=== PATIENT | female | born 1950 | race Caucasian/White ===

== ENCOUNTER 2022-04-06 09:58 | Inpatient (IN) | payer MEDICARE, MEDICAID, SELFPAY ==
--- NOTE | ~2022-04-06 | CT_ITS ---
EXAMINATION: CT HEAD WITHOUT CONTRAST CLINICAL INFORMATION: Apparent no area, delusions COMPARISON: None TECHNIQUE: Contiguous axial imaging was performed from the skull base to vertex without intravenous administration of contrast. This CT examination was performed using dose optimization techniques as appropriate, variously including the following: *Automated exposure control *Adjustment of mA and/or kV according to patient size (this includes techniques or standardized protocols for targeted exams where dose is matched to indication/reason for exam; i.e. extremities or head) *Use of iterative reconstruction technique DLP: 618.4 mGy-cm FINDINGS: No evidence for hemorrhage or mass effect. Martinez/white matter differentiation is maintained. There is no evidence for territorial infarct. Mild atrophy seen. Cisterns unremarkable. The ventricular system demonstrates no intraluminal blood. No evidence for extra-axial collection. Mastoids unremarkable. Prominent cerumen in the external auditory canals. Calvarium intact. CT/CT head/brain wo IV con IMPRESSION: Mild atrophy without any evidence for acute process.
[2022-04-06 10:05] VITALS: BP 120/71; BP 129/66; PULSE 103; PULSE 82; RESP 18; TEMP 36.7; O2SAT 100; O2SAT 98; BMI 32.9
[2022-04-06 10:19] VITALS: RESP 18
--- NOTE | 2022-04-06 10:27 | ECG_ITS ---
Test Reason : check qtc Blood Pressure : / mmHG Vent. Rate : 071 BPM Atrial Rate : 288 BPM P-R Int : 000 ms QRS Dur : 076 ms QT Int : 426 ms P-R-T Axes : 041 033 027 degrees QTc Int : 462 ms Artifact in tracing Normal sinus rhythm with a demand pacemaker Premature atrial complexes Nonspecific ST abnormality Abnormal ECG No previous ECGs available Referred By: Juliann Ball Electronically Signed By:NADYA DOMINGO
--- NOTE | 2022-04-06 10:33 | PC.NURSE ---
contact made with [facility] pharmacy, pt is suspicious regarding medication and medical hx. Last Rx was filled Feb 21.
[2022-04-06 10:50] LABS: MANUAL DIFF FLAG NO
[2022-04-06 10:52] LABS: Basophils Percent Auto 0.5 % (0-2); Eosinophils Absolute Auto 0.2 X10*3/uL (0.0-0.4); Eosinophils Percent Auto 2.6 % (0-4); Hematocrit 42.9 % (37.0-47.0); Hemoglobin 14.9 g/dl (12.0-16.0); Imm Gran Abs Auto 0.03 X10*3/uL (0.00-0.03); Imm Gran Pct Auto 0.3 % (0.0-0.4); Lymphocytes Absolute Auto 1.7 X10*3/uL (1.2-4.9); Lymphocytes Percent Auto 19.9 % (20-40); Mean Corpuscular HGB Conc 34.7 g/dl (31.0-35.0); Mean Corpuscular Hemoglobin 30.5 pg (27.0-33.0); Mean Corpuscular Volume 87.9 fL (80.0-98.0); Mean Platelet Volume 9.6 fL (9.4-12.3); Monocytes Absolute Auto 0.6 X10*3/uL (0.1-1.2); Monocytes Percent Auto 7.2 % (2-11); Neutrophils Percent Auto 69.5 % (45-73); Platelet Count 291 X10*3/uL (160-400); Red Blood Count 4.88 X10*6/uL (4.20-5.50); Red Cell Distribution Width 12.6 % (11.0-16.0); White Blood Count 8.6 X10*3/uL (4.8-10.8)
--- NOTE | 2022-04-06 10:53 | PHA.MEDREC ---
Pharmacy Consult ? Medication Reconciliation Pharmacy has reviewed the medication reconciliation completed by Halie. There are no remarkable issues for provider's attention. It has been about one month since patient has taken medications per [facility]. Dipti Vaughn, NicolleD
--- NOTE | 2022-04-06 11:07 | MHC.CARE ---
Pt was seen by N Rudolph in the community and is a bedsearch
--- NOTE | 2022-04-06 11:14 | PC.NURSE ---
Per [facility]: pt to be moved to Main ER for cardiac montiorting s/p EKG showing Aflutter.
[2022-04-06 11:15] LABS: Influenza A PCR NEGATIVE (Negative); Influenza B PCR NEGATIVE (Negative); Resp Syncy Virus RNA Qual PCR NEGATIVE (Negative); SARS COV2 PCR INHOUSE NEGATIVE (Negative)
--- NOTE | 2022-04-06 11:18 | ED.PSYCH ---
HPI - Psych General Chief Complaint: Psychiatric Symptoms <Juliann BallDAILY - Last Filed: 04/06/22 18:44> Stated Complaint: sec 12 non med compliant per EMS <Juliann Ball DAILY - Last Filed: 04/06/22 18:44> Time Seen by Provider: 04/06/22 10:15 <Juliann BallDAILY - Last Filed: 04/06/22 18:44> Source: patient and EMS <Juliann BallDAILY - Last Filed: 04/06/22 18:44> Mode of arrival: EMS <Juliann BallDAILY - Last Filed: 04/06/22 18:44> Limitations: no limitations <Juliann Ball DAILY - Last Filed: 04/06/22 18:44> History of Present Illness HPI Narrative: Patient is a 71-year-old female who presents to emergency department via EMS on a Section 12 from the [facility]. She is coming from home today, was placed on section 12 by N and clinician and made her an inpatient bed search from [facility]. She reportedly has not been taking her medications over the past week, however she reports to me that she stopped taking them 2 weeks ago because she does not like the way they make her feel. She reports that she had to come here today because she would not let anyone enter her home. She is having paranoia, reportedly having hallucinations of a boyfriend was ?imaginary? according to clinician note, and hallucinations of her being on vacation. When asked, she denies recent ill symptoms, fevers, chills, headache, dizziness, lightheadedness, neck pain, chest pain, palpitations, shortness of breath, difficulty breathing, nausea, vomiting, abdominal pain, numbness or tingling in her extremities. <Juliann BallDAILY - Last Filed: 04/06/22 18:44> Related Data Home Medications: Home Medications Medication Instructions Recorded Confirmed albuterol sulfate 90 mcg/actuation 2 puff inhalation Q6H PRN Wheezing 04/06/22 04/06/22 aerosol inhaler (Ventolin HFA) bupropion HCl 300 mg 24 hr tablet, 1 tab PO DAILY 04/06/22 04/06/22 extended release fluticasone propionate 220 2 puff inhalation BID 04/06/22 04/06/22 mcg/actuation HFA aerosol inhaler haloperidol 10 mg tablet 1 tab PO BEDTIME 04/06/22 04/06/22 hydrochlorothiazide 25 mg tablet 1 tab PO BID 04/06/22 04/06/22 loratadine 10 mg tablet 1 tab PO DAILY 04/06/22 04/06/22 montelukast 10 mg tablet 1 tab PO BEDTIME 04/06/22 04/06/22 paroxetine HCl 30 mg tablet 1 tab PO DAILY 04/06/22 04/06/22 ziprasidone HCl 80 mg capsule 80 mg PO DIRECTED 04/06/22 04/06/22 <Juliann Ball CNP - Last Filed: 04/06/22 18:44> Allergies/Adverse Reactions: Allergies Allergy/AdvReac Type Severity Reaction Status Date / Time Penicillins [PCN] Allergy Rash Verified 04/06/22 10:23 Sulfa (Sulfonamide Allergy Swelling Verified 04/06/22 10:23 Antibiotics) <Juliann Ball CNP - Last Filed: 04/06/22 18:44> Review of Systems Review of Systems: Constitutional : No Fever, No Chills ENT/Mouth : No Ear Pain, No Nasal Congestion, No sore throat Eyes: No Eye Pain, No Swelling, No Redness Cardiovascular : No Chest Pain, No SOB Respiratory : No Cough, No Sputum, No Dyspnea Gastrointestinal : No Nausea, No Vomiting, No Diarrhea, No Hematochezia, No Melena Genitourinary : No Dysuria, No Urinary Frequency, No Hematuria Musculoskeletal : No Myalgias Skin : No Skin Lesions, No rash Neuro : No Weakness, No Numbness, No Paresthesias, No Dizziness, No Headache Psych : positive Anxiety, positive Depression, no SI/HI, positive hallucinations Heme/Lymph: No Lymphadenopathy Endocrine : No Polyuria, No Polydipsia <Juliann Ball CNP - Last Filed: 04/06/22 18:44> Yes all other systems are reviewed and are negative <Juliann Ball CNP - Last Filed: 04/06/22 18:44> PMFSH Past Medical History Attestation statement: The following information was validated with the patient. <Juliann Ball CNP - Last Filed: 04/06/22 18:44> Source: old records reviewed <Juliann Ivetteclement Ball CNP - Last Filed: 04/06/22 18:44> Social History Social History: Social History Alcohol intake: unknown Smoked in Last 30 Days: No Use of substances other than those prescribed or required for medical reasons: Unknown Advance Directives: No Advance Directives Information Provided: No <Juliann Ball CNP - Last Filed: 04/06/22 18:44> Physical Exam Vital Signs: Vital Signs: Last Vital Signs Temp 97.8 F 04/06/22 23:27 Pulse 62 04/06/22 23:27 Resp 16 04/06/22 23:27 BP 125/62 04/06/22 23:27 Pulse Ox 98 04/06/22 23:27 O2 Del Method 04/06/22 23:27 BMI result Body Mass Index 32.9 <Juliann Ball CNP - Last Filed: 04/06/22 18:44> Vital Signs: Last Vital Signs Temp 97.8 F 04/06/22 23:27 Pulse 62 04/06/22 23:27 Resp 16 04/06/22 23:27 BP 125/62 04/06/22 23:27 Pulse Ox 98 04/06/22 23:27 O2 Del Method 04/06/22 23:27 BMI result Body Mass Index 32.9 <Kevin EspañaDO rommel - Last Filed: 04/07/22 07:46> Appearance: Alert.?Oriented to person, place and time. No acute distress.?Normal affect. Eyes: Pupils equal, round and reactive to light.? ENT: Pharynx normal.?? Neck: Normal inspection.? Neck supple.?? CVS: Heart sounds normal. Normal heart rate and irregular rhythm.? Pulses normal.?? Respiratory: No respiratory distress.? Lung sounds clear to auscultation bilaterally?? Abdomen: Soft and non-tender. Normoactive bowel sounds. Skin: Skin warm and dry.? Normal skin color.? Extremities: No lower extremity edema.? Neuro: Moves all extremities spontaneously. Sensation intact bilaterally. CN II-XII intact. No focal neuro deficits. Ambulates with normal steady gait. <Juliann Templetonome, INJECTION PRESS OPERATOR - Last Filed: 04/06/22 18:44> Course Reevaluation(s) Reevaluation #1: EKG reveals atrial fibrillation, it is unclear whether this is new for patient. Does not appear as though she is on any rate control type medications. I talked to contact patient's sister; Jania, who was unable to provide specific medical history aside from schizophrenia fibromyalgia. Jania does endorse that she has been seeming a bit more ?off? recently. She also endorses that patient has been stating that she has a boyfriend but neither herself nor patient's mother have actually met this person. I spoke with our care team clinicians who are going to contact [facility] (who have already evaluated patient in the community) to determine which visiting nurse service patient is in the [place] with we may obtain a more in depth past medical history. In addition, I spoke with the charge nurse and patient will be moved to the main emergency department so that she can be placed on vehicle monitor technician. <Juliann Ball CNP - Last Filed: 04/06/22 18:44> Time: 11:15 <Juliann Ball CNP - Last Filed: 04/06/22 18:44> Reevaluation #2: Records obtained from patient's visiting nurse services, reported past medical history of schizoaffective disorder and psychosis, reviewed medication list it appears as though she is on hydrochlorothiazide due to swelling in the legs, does not appear to be on any additional medications that might suggests history of hypertension or atrial fibrillation. CHADS2-VASc score of 2. Consult did with Cardiology, Dr. Shook, disagrees with interpretation of initial EKG, he does not feel that this was atrial fibrillation. States no indication for anticoagulants use at this time. <Juliann Ivetteclement Ball CNP - Last Filed: 04/06/22 18:44> Time: 13:12 <Juliann Ball CNP - Last Filed: 04/06/22 18:44> Reevaluation #3: CT of the head reveals mild atrophy without any acute intracranial process. CBC is overall unremarkable. CMP is overall unremarkable. At this time, she is medically cleared, she is an inpatient psychiatric bed search. Placed in physician observation she will require further time for placement. <Juliann BallDAILY - Last Filed: 04/06/22 18:44> Time: 16:20 <Juliann BallDAILY - Last Filed: 04/06/22 18:44> Medical Decision Making Medical Decision Making [facility] Narrative: Patient is a 71-year-old female, has not previously been to this Medical Center, past medical history is unclear. Nursing staff was able to contact patient's pharmacy and obtain active medication list including albuterol, bupropion, haloperidol, HCTZ, loratadine, Singulair, paroxetine, ziprasidone. Upon speaking with patient she is alert and oriented x3, she does not appear to be responding to internal stimuli, she is calm and cooperative. She is expressing paranoia surrounding ?people trying to come into her home to harm her?. Review of records in addition dissection received from [facility]; apparently within the 20 years she has been but involved with [facility] she has never had similar episodes to this in the past which she refuses to take her medications and refuses services in the home. She denies any suicidal ideations or homicidal ideations. She denies any drug or alcohol usage. Will obtain basic labs, EKG, in addition to CT of the head to exclude intracranial pathology as reason for increased paranoia and delusions. She has no focal neurological deficits upon examination. <Juliann TempletonDAILY rao - Last Filed: 04/06/22 18:44> Consult Healthcare Provider Management of the patient was discussed with: [facility] (Dr. Shook; cardiology, states initial EKG was not atrial fibrillation, no indication for anticoagulants use at this time.) <Juliann Steele DAILY Ball - Last Filed: 04/06/22 18:44> Lab Data [facility] Lab Attestation statement: I reviewed the patient's lab results. <Juliann Stilesclement Ball CNP - Last Filed: 04/06/22 18:44> Result Diagrams: : 04/06/22 10:46 04/06/22 10:46 <Juliannmatt Ball CNP - Last Filed: 04/06/22 18:44> Labs: Lab Results 04/06/22 04/06/22 04/06/22 Range/Units 10:27 10:46 10:46 WBC 8.6 (4.8-10.8) X10*3/uL RBC 4.88 (4.20-5.50) X10*6/uL Hgb 14.9 (12.0-16.0) g/dl Hct 42.9 (37.0-47.0) % MCV 87.9 (80.0-98.0) fL MCH 30.5 (27.0-33.0) pg MCHC 34.7 (31.0-35.0) g/dl RDW 12.6 (11.0-16.0) % Plt Count 291 (160-400) X10*3/uL MPV 9.6 (9.4-12.3) fL Immature Gran % (Auto) 0.3 (0.0-0.4) % Neut % (Auto) 69.5 (45-73) % Lymph % (Auto) 19.9 L (20-40) % Dickinson % (Auto) 7.2 (2-11) % Eos % (Auto) 2.6 (0-4) % Baso % (Auto) 0.5 (0-2) % Lymph # (Auto) 1.7 (1.2-4.9) X10*3/uL Dickinson # (Auto) 0.6 (0.1-1.2) X10*3/uL Eos # (Auto) 0.2 (0.0-0.4) X10*3/uL Baso # (Auto) 0.0 (0.0-0.2) X10*3/uL Abs Immat Gran (auto) 0.03 (0.00-0.03) X10*3/uL Absolute Neuts (auto) 6.0 (2.0-8.3) x10*3/uL Absolute Nucleated RBC 0.000 (0.0-0.012) X10*3/uL Nucleated RBC % (auto) 0.0 (0.0-0.2) /100WBC Sodium 142 (135-145) mmol/L Potassium 3.5 (3.3-5.1) mmol/L Chloride 104 (96-108) mmol/L Carbon Dioxide 27 (22-29) mmol/L Anion Gap 15 (12-20) BUN 8 L (9-16) mg/dL Creatinine 0.78 (0.5-1.4) mg/dL Estim Creat Clear Calc 67.3 Estimated GFR > 60 Random Glucose 100 (60-115) mg/dL Calcium 9.4 (8.4-10.2) mg/dL Total Bilirubin 1.0 (0.0-1.0) mg/dL AST 24 (5-31) U/L ALT 30 (0-31) U/L Alkaline Phosphatase 60 (39-117) U/L Troponin I High Sens (<3.5-17.0) ng/L Total Protein 6.1 L (6.5-8.0) g/dL Albumin 3.9 (3.5-5.0) g/dL Urine Color Urine Appearance Urine pH (5.0-9.0) Ur Specific [place] (1.005-1.025) Urine Protein (Neg-Trace) mg/dL Urine Glucose (UA) (Negative) mg/dL Urine Ketones (Negative) mg/dL Urine Blood (Negative) Urine Nitrite (Negative) Ur Leukocyte Esterase (Negative) Urine RBC (0-2) /HPF Urine WBC (0-5) /HPF Ur Squamous Epith Cells (0-2) /HPF Urine Bacteria (None Seen) Hyaline Casts (0-2) /LPF Urine Opiates Screen (Not Detect) Urine Fentanyl Screen (Not Detect) Ur Barbiturates Screen (Not Detect) Ur Phencyclidine Scrn (Not Detect) Ur Amphetamines Screen (Not Detect) U Benzodiazepines Scrn (Not Detect) Urine Cocaine Screen (Not Detect) U Marijuana (THC) Screen (Not Detect) Ethyl Alcohol < 10 mg/dL Influenza Type A (PCR) NEGATIVE (Negative) Influenza Type B (PCR) NEGATIVE (Negative) RSV RNA Qual (PCR) NEGATIVE (Negative) SARS-CoV-2 RNA (RT-PCR) NEGATIVE (Negative) 04/06/22 04/06/22 04/06/22 Range/Units 10:46 13:21 13:21 WBC (4.8-10.8) X10*3/uL RBC (4.20-5.50) X10*6/uL Hgb (12.0-16.0) g/dl Hct (37.0-47.0) % MCV (80.0-98.0) fL MCH (27.0-33.0) pg MCHC (31.0-35.0) g/dl RDW (11.0-16.0) % Plt Count (160-400) X10*3/uL MPV (9.4-12.3) fL Immature Gran % (Auto) (0.0-0.4) % Neut % (Auto) (45-73) % Lymph % (Auto) (20-40) % Dickinson % (Auto) (2-11) % Eos % (Auto) (0-4) % Baso % (Auto) (0-2) % Lymph # (Auto) (1.2-4.9) X10*3/uL Dickinson # (Auto) (0.1-1.2) X10*3/uL Eos # (Auto) (0.0-0.4) X10*3/uL Baso # (Auto) (0.0-0.2) X10*3/uL Abs Immat Gran (auto) (0.00-0.03) X10*3/uL Absolute Neuts (auto) (2.0-8.3) x10*3/uL Absolute Nucleated RBC (0.0-0.012) X10*3/uL Nucleated RBC % (auto) (0.0-0.2) /100WBC Sodium (135-145) mmol/L Potassium (3.3-5.1) mmol/L Chloride (96-108) mmol/L Carbon Dioxide (22-29) mmol/L Anion Gap (12-20) BUN (9-16) mg/dL Creatinine (0.5-1.4) mg/dL Estim Creat Clear Calc Estimated GFR Random Glucose (60-115) mg/dL Calcium (8.4-10.2) mg/dL Total Bilirubin (0.0-1.0) mg/dL AST (5-31) U/L ALT (0-31) U/L Alkaline Phosphatase (39-117) U/L Troponin I High Sens 3.9 (<3.5-17.0) ng/L Total Protein (6.5-8.0) g/dL Albumin (3.5-5.0) g/dL Urine Color Yellow Urine Appearance Clear Urine pH 6.0 (5.0-9.0) Ur Specific [place] 1.010 (1.005-1.025) Urine Protein Negative (Neg-Trace) mg/dL Urine Glucose (UA) Negative (Negative) mg/dL Urine Ketones 40 (Negative) mg/dL Urine Blood Negative (Negative) Urine Nitrite Negative (Negative) Ur Leukocyte Esterase Trace H (Negative) Urine RBC 0-2 (0-2) /HPF Urine WBC 0-5 (0-5) /HPF Ur Squamous Epith Cells 6-10 (0-2) /HPF Urine Bacteria Trace (None Seen) Hyaline Casts 0-2 (0-2) /LPF Urine Opiates Screen Not Detected (Not Detect) Urine Fentanyl Screen Not Detected (Not Detect) Ur Barbiturates Screen Not Detected (Not Detect) Ur Phencyclidine Scrn Not Detected (Not Detect) Ur Amphetamines Screen Not Detected (Not Detect) U Benzodiazepines Scrn Not Detected (Not Detect) Urine Cocaine Screen Not Detected (Not Detect) U Marijuana (THC) Screen Not Detected (Not Detect) Ethyl Alcohol mg/dL Influenza Type A (PCR) (Negative) Influenza Type B (PCR) (Negative) RSV RNA Qual (PCR) (Negative) SARS-CoV-2 RNA (RT-PCR) (Negative) <Juliann Ball, INJECTION PRESS OPERATOR - Last Filed: 04/06/22 18:44> Lab Results 04/06/22 04/06/22 04/06/22 Range/Units 10:27 10:46 10:46 WBC 8.6 (4.8-10.8) X10*3/uL RBC 4.88 (4.20-5.50) X10*6/uL Hgb 14.9 (12.0-16.0) g/dl Hct 42.9 (37.0-47.0) % MCV 87.9 (80.0-98.0) fL MCH 30.5 (27.0-33.0) pg MCHC 34.7 (31.0-35.0) g/dl RDW 12.6 (11.0-16.0) % Plt Count 291 (160-400) X10*3/uL MPV 9.6 (9.4-12.3) fL Immature Gran % (Auto) 0.3 (0.0-0.4) % Neut % (Auto) 69.5 (45-73) % Lymph % (Auto) 19.9 L (20-40) % Dickinson % (Auto) 7.2 (2-11) % Eos % (Auto) 2.6 (0-4) % Baso % (Auto) 0.5 (0-2) % Lymph # (Auto) 1.7 (1.2-4.9) X10*3/uL Dickinson # (Auto) 0.6 (0.1-1.2) X10*3/uL Eos # (Auto) 0.2 (0.0-0.4) X10*3/uL Baso # (Auto) 0.0 (0.0-0.2) X10*3/uL Abs Immat Gran (auto) 0.03 (0.00-0.03) X10*3/uL Absolute Neuts (auto) 6.0 (2.0-8.3) x10*3/uL Absolute Nucleated RBC 0.000 (0.0-0.012) X10*3/uL Nucleated RBC % (auto) 0.0 (0.0-0.2) /100WBC Sodium 142 (135-145) mmol/L Potassium 3.5 (3.3-5.1) mmol/L Chloride 104 (96-108) mmol/L Carbon Dioxide 27 (22-29) mmol/L Anion Gap 15 (12-20) BUN 8 L (9-16) mg/dL Creatinine 0.78 (0.5-1.4) mg/dL Estim Creat Clear Calc 67.3 Estimated GFR > 60 Random Glucose 100 (60-115) mg/dL Calcium 9.4 (8.4-10.2) mg/dL Total Bilirubin 1.0 (0.0-1.0) mg/dL AST 24 (5-31) U/L ALT 30 (0-31) U/L Alkaline Phosphatase 60 (39-117) U/L Troponin I High Sens (<3.5-17.0) ng/L Total Protein 6.1 L (6.5-8.0) g/dL Albumin 3.9 (3.5-5.0) g/dL Urine Color Urine Appearance Urine pH (5.0-9.0) Ur Specific [place] (1.005-1.025) Urine Protein (Neg-Trace) mg/dL Urine Glucose (UA) (Negative) mg/dL Urine Ketones (Negative) mg/dL Urine Blood (Negative) Urine Nitrite (Negative) Ur Leukocyte Esterase (Negative) Urine RBC (0-2) /HPF Urine WBC (0-5) /HPF Ur Squamous Epith Cells (0-2) /HPF Urine Bacteria (None Seen) Hyaline Casts (0-2) /LPF Urine Opiates Screen (Not Detect) Urine Fentanyl Screen (Not Detect) Ur Barbiturates Screen (Not Detect) Ur Phencyclidine Scrn (Not Detect) Ur Amphetamines Screen (Not Detect) U Benzodiazepines Scrn (Not Detect) Urine Cocaine Screen (Not Detect) U Marijuana (THC) Screen (Not Detect) Ethyl Alcohol < 10 mg/dL Influenza Type A (PCR) NEGATIVE (Negative) Influenza Type B (PCR) NEGATIVE (Negative) RSV RNA Qual (PCR) NEGATIVE (Negative) SARS-CoV-2 RNA (RT-PCR) NEGATIVE (Negative) 04/06/22 04/06/22 04/06/22 Range/Units 10:46 13:21 13:21 WBC (4.8-10.8) X10*3/uL RBC (4.20-5.50) X10*6/uL Hgb (12.0-16.0) g/dl Hct (37.0-47.0) % MCV (80.0-98.0) fL MCH (27.0-33.0) pg MCHC (31.0-35.0) g/dl RDW (11.0-16.0) % Plt Count (160-400) X10*3/uL MPV (9.4-12.3) fL Immature Gran % (Auto) (0.0-0.4) % Neut % (Auto) (45-73) % Lymph % (Auto) (20-40) % Dickinson % (Auto) (2-11) % Eos % (Auto) (0-4) % Baso % (Auto) (0-2) % Lymph # (Auto) (1.2-4.9) X10*3/uL Dickinson # (Auto) (0.1-1.2) X10*3/uL Eos # (Auto) (0.0-0.4) X10*3/uL Baso # (Auto) (0.0-0.2) X10*3/uL Abs Immat Gran (auto) (0.00-0.03) X10*3/uL Absolute Neuts (auto) (2.0-8.3) x10*3/uL Absolute Nucleated RBC (0.0-0.012) X10*3/uL Nucleated RBC % (auto) (0.0-0.2) /100WBC Sodium (135-145) mmol/L Potassium (3.3-5.1) mmol/L Chloride (96-108) mmol/L Carbon Dioxide (22-29) mmol/L Anion Gap (12-20) BUN (9-16) mg/dL Creatinine (0.5-1.4) mg/dL Estim Creat Clear Calc Estimated GFR Random Glucose (60-115) mg/dL Calcium (8.4-10.2) mg/dL Total Bilirubin (0.0-1.0) mg/dL AST (5-31) U/L ALT (0-31) U/L Alkaline Phosphatase (39-117) U/L Troponin I High Sens 3.9 (<3.5-17.0) ng/L Total Protein (6.5-8.0) g/dL Albumin (3.5-5.0) g/dL Urine Color Yellow Urine Appearance Clear Urine pH 6.0 (5.0-9.0) Ur Specific [place] 1.010 (1.005-1.025) Urine Protein Negative (Neg-Trace) mg/dL Urine Glucose (UA) Negative (Negative) mg/dL Urine Ketones 40 (Negative) mg/dL Urine Blood Negative (Negative) Urine Nitrite Negative (Negative) Ur Leukocyte Esterase Trace H (Negative) Urine RBC 0-2 (0-2) /HPF Urine WBC 0-5 (0-5) /HPF Ur Squamous Epith Cells 6-10 (0-2) /HPF Urine Bacteria Trace (None Seen) Hyaline Casts 0-2 (0-2) /LPF Urine Opiates Screen Not Detected (Not Detect) Urine Fentanyl Screen Not Detected (Not Detect) Ur Barbiturates Screen Not Detected (Not Detect) Ur Phencyclidine Scrn Not Detected (Not Detect) Ur Amphetamines Screen Not Detected (Not Detect) U Benzodiazepines Scrn Not Detected (Not Detect) Urine Cocaine Screen Not Detected (Not Detect) U Marijuana (THC) Screen Not Detected (Not Detect) Ethyl Alcohol mg/dL Influenza Type A (PCR) (Negative) Influenza Type B (PCR) (Negative) RSV RNA Qual (PCR) (Negative) SARS-CoV-2 RNA (RT-PCR) (Negative) <Kevin España DO - Last Filed: 04/07/22 07:46> Independent Interpretation I performed an independent interpretation of an: EKG <Juliann Ball CNP - Last Filed: 04/06/22 18:44> Interpretation: Initial EKG: Rate: 71 Rhythm:? Atrial fibrillation Normal QRS complex.?? ST T wave :??No ST elevation, no ST depression qTC: 462 prior studies:? None available for review The study has been interpreted contemporaneously by me. Repeat EKG: Rate: 64 Rhythm:? Normal sinus rhythm Normal P waves.? Normal GUI.?? Normal QRS complex.?? ST T wave :??No ST elevation, ST depression, no T-wave inversion qTC: 443 prior studies:? Today The study has been interpreted contemporaneously by me. <Juliann Ball CNP - Last Filed: 04/06/22 18:44> Radiology Impression Discussion of test interpretation with radiology: I have reviewed the radiologist's reading. <Juliann Ball CNP - Last Filed: 04/06/22 18:44> Radiologist Impression: CT/CT head/brain wo IV con IMPRESSION: Mild atrophy without any evidence for acute process. <Juliann Ball CNP - Last Filed: 04/06/22 18:44> Discharge Plan Discharge Clinical Impression: Schizophrenia, Paranoia <Juliann Ball CNP - Last Filed: 04/06/22 18:44> Patient Disposition: Still a Patient <Juliann Ball CNP - Last Filed: 04/06/22 18:44> Prescriptions: No Action ziprasidone HCl 80 mg capsule 80 mg PO DIRECTED Label Comments: 1 cap am, 2 caps pm Rx Instructions: Doctor's Order paroxetine HCl 30 mg tablet 1 tab PO DAILY haloperidol 10 mg tablet 1 tab PO BEDTIME montelukast 10 mg tablet 1 tab PO BEDTIME fluticasone propionate 220 mcg/actuation HFA aerosol inhaler 2 puff INHALATION BID hydrochlorothiazide 25 mg tablet 1 tab PO BID albuterol sulfate [Ventolin HFA] 90 mcg/actuation HFA aerosol inhaler 2 puff inhalation Q6H PRN (Reason: Wheezing) loratadine 10 mg tablet 1 tab PO DAILY bupropion HCl 300 mg tablet extended release 24 hr 1 tab PO DAILY <Juliann Ball CNP - Last Filed: 04/06/22 18:44> Interventions: [place]-Suicide Risk Severity Scale Last Done: 04/07/22 05:50 <Juliann Ball CNP - Last Filed: 04/06/22 18:44> ED Observation ED Observation Admit Comment: Patient will continue physician observation vitals reviewed no issues no overnight events <Kevin España DO - Last Filed: 04/07/22 07:46>
[2022-04-06 12:12] LABS: Troponin-I High Sensitivity 3.9 ng/L (<3.5-17.0)
--- NOTE | 2022-04-06 12:34 | ECG_ITS ---
Test Reason : arrhythmia Blood Pressure : / mmHG Vent. Rate : 064 BPM Atrial Rate : 064 BPM P-R Int : 142 ms QRS Dur : 078 ms QT Int : 430 ms P-R-T Axes : 070 029 033 degrees QTc Int : 443 ms Normal sinus rhythm Normal ECG When compared with ECG of 06-APR-2022 10:53, No significant changes seen Referred By: Juliann Ball Electronically Signed By:NADYA DOMINGO
[2022-04-06 13:06] LABS: Alanine Aminotransferase 30 U/L (0-31); Albumin Level 3.9 g/dL (3.5-5.0); Alkaline Phosphatase 60 U/L (39-117); Anion Gap 15 (12-20); Aspartate Amino Transferase 24 U/L (5-31); Blood Urea Nitrogen 8 mg/dL (9-16); Calcium 9.4 mg/dL (8.4-10.2); Carbon Dioxide 27 mmol/L (22-29); Chloride 104 mmol/L (96-108); Creatinine Clr Calc Pharmacy 67.3; Estimated Glomerular Filt Rate > 60; Ethanol < 10 mg/dL; Glucose Random 100 mg/dL (60-115); Potassium 3.5 mmol/L (3.3-5.1); Sodium 142 mmol/L (135-145); Total Protein 6.1 g/dL (6.5-8.0)
[2022-04-06 13:24] VITALS: BP 132/69; PULSE 68; RESP 15; TEMP 36.4; O2SAT 96
[2022-04-06 13:41] LABS: Appearance Urine Clear; Color Urine Yellow; Glucose Urine UA Negative (Negative); Leukocyte Esterase Urine Trace (Negative); Nitrite Urine Negative (Negative); UMIC TRIGGER UACC YES; Urine Blood Negative (Negative); Urine Ketones 40 mg/dL (Negative); Urine Protein Negative (Neg-Trace)
[2022-04-06 13:43] LABS: Bacteria Urine Trace (None Seen); Hyaline Casts Urine 0-2 /LPF (0-2); RBC Urine 0-2 /HPF (0-2); WBC Urine 0-5 /HPF (0-5)
[2022-04-06 13:48] LABS: Amphetamine Screen Urine Not Detected (Not Detect); Barbiturates, Urine Not Detected (Not Detect); Benzodiazepines Screen Urine Not Detected (Not Detect); Cannabinoid Screen Urine Not Detected (Not Detect); Cocaine Screen Urine Not Detected (Not Detect); Fentanyl, urine Not Detected (Not Detect); Opiate Screen Urine Not Detected (Not Detect); Phencyclidine Screen Urine Not Detected (Not Detect)
[2022-04-06 14:31] VITALS: BP 125/65; PULSE 64; RESP 15; TEMP 36.6; O2SAT 97
--- NOTE | 2022-04-06 16:25 | PC.NURSE ---
patient alert, oriented x3. calm and cooperative with care. 1:1 at the bedside.
[2022-04-06 18:00] VITALS: RESP 18
[2022-04-06 23:27] VITALS: BP 125/62; PULSE 62; RESP 16; TEMP 36.6; O2SAT 98
--- NOTE | 2022-04-07 05:53 | PC.NURSE ---
Patient slept through the night, no distress observed/reported, out of room once for water, coherent, med rec completed/pending provider's approval, behavior mostly isolative and non concerning at this time, appetite good, elimination intact, disposition per N from community is section 12 inpatient bed search, VSS, will continue to monitor.
[2022-04-07 08:16] VITALS: BP 117/71; PULSE 85; RESP 15; TEMP 37; O2SAT 98
[2022-04-07 21:00] VITALS: BP 133/70; PULSE 90; RESP 16; TEMP 36.6; O2SAT 97
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
[2022-04-08 08:30] VITALS: BP 113/61; PULSE 62; TEMP 36.5
[2022-04-08 09:14] LABS: Estimated Average Glucose 94 mg/dL; Hemoglobin A1c % 4.9 %
[2022-04-08] MEDS: hydroCHLOROthiazide 25 MG TABLET PO ×2 (09:15→16:54)
[2022-04-08] MEDS: Loratadine 10 MG TABLET PO (09:15)
[2022-04-08 09:40] LABS: Cholesterol 152 mg/dL; Free T4 (Free Thyroxine) 1.34 ng/dL (0.71-1.85); HDL Cholesterol 35 mg/dL; LDL Cholesterol Calculated 94 mg/dl; Magnesium 1.8 mg/dL (1.6-2.6); Thyroid Stimulating Hormone 0.19 uIU/mL (0.32-4.0); Triglycerides 117 mg/dL
[2022-04-08 09:52] LABS: Folate 13.9 ng/mL (> or = 4.0); Vitamin B12 907 pg/mL (200-900)
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
[2022-04-08 16:41] VITALS: BP 126/62; PULSE 71; RESP 18; O2SAT 98
[2022-04-08] MEDS: Fluticasone Propionate 250 MCG BLST.W.DEV 2 PUFF INHALE (20:57)
[2022-04-08] MEDS: Montelukast Sodium 10 MG TABLET PO (20:57)
[2022-04-08] MEDS: HaloperidoL 5 MG TABLET PO (20:57)
[2022-04-09 08:00] VITALS: BP 102/67; PULSE 70; TEMP 36.3
[2022-04-09] MEDS: buPROPion HCl XL 300 MG TAB.ER.24H PO (09:18)
[2022-04-09] MEDS: Loratadine 10 MG TABLET PO (09:28)
[2022-04-09] MEDS: hydroCHLOROthiazide 25 MG TABLET PO ×2 (09:29→16:35)
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
[2022-04-09] MEDS: Acetaminophen 325 MG TABLET 650 MG PO (16:35)
[2022-04-09 16:41] VITALS: BP 123/58; PULSE 81; TEMP 37; O2SAT 97
[2022-04-09] MEDS: Montelukast Sodium 10 MG TABLET PO (19:21)
[2022-04-09] MEDS: HaloperidoL 5 MG TABLET 10 MG PO (19:21)
[2022-04-10 08:30] VITALS: BP 114/58; PULSE 71; TEMP 36.6
[2022-04-10] MEDS: Loratadine 10 MG TABLET PO (09:22)
[2022-04-10] MEDS: hydroCHLOROthiazide 25 MG TABLET PO ×2 (09:22→16:24)
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
[2022-04-10 16:07] VITALS: BP 126/58; PULSE 77; RESP 18; TEMP 37.1; O2SAT 97
[2022-04-10] MEDS: HaloperidoL 5 MG TABLET 10 MG PO (20:17)
[2022-04-10] MEDS: Fluticasone Propionate 250 MCG BLST.W.DEV 2 PUFF INHALE (20:17)
[2022-04-10] MEDS: Montelukast Sodium 10 MG TABLET PO (20:18)
[2022-04-11] MEDS: hydroCHLOROthiazide 25 MG TABLET PO ×2 (09:02→17:11)
[2022-04-11] MEDS: Loratadine 10 MG TABLET PO (09:02)
[2022-04-11] MEDS: Fluticasone Propionate 250 MCG BLST.W.DEV 2 PUFF INHALE ×2 (09:02→21:53)
[2022-04-11] MEDS: buPROPion HCl XL 300 MG TAB.ER.24H PO (09:02)
[2022-04-11 09:13] VITALS: BP 124/70; PULSE 70; RESP 18; TEMP 36.7; O2SAT 95
--- NOTE | 2022-04-11 10:03 | P.PNPSI_ITS ---
Subjective Subjective Date of Service: 04/11/22 Reason For Visit: schizoaffective disorder bipolar type Interim History: Patient remains disorganized and disheveled, however she was willing to come out of her room, escorted by nursing and sit in the milieu. She said that she is feeling better and that her head is overall feeling better though complains of a headache. Denies psychiatric symptoms Mental Status Exam Mental Status Exam Narrative: Pt is alert and oriented; behavior is cooperative, friendly, calm; patient is not in distress; dressed in hospital gown with unkempt hair, disheveled; mood is described as better and affect congruent; eye contact appropriate; Speech is no longer latent and normal rate, volume and prosody and not pressured; some psychomotor retardation present; thought process is goal directed; Thought content is on delusional content; denies any SI/HI. Internally preoccupied; denies AVH. Patients insight and judgment are impaired. Diagnostics Vital Signs (24Hr): Vital Signs - 24 hr 04/10/22 16:07 04/11/22 09:13 Temperature 98.8 F 98.1 F Pulse Rate 77 70 Respiratory Rate 18 18 Blood Pressure 126/58 L 124/70 Pulse Oximetry 97 95 Oxygen Delivery Method Room Air Room Air BMI result Body Mass Index 32.9 Labs Results: 04/06/22 10:46 04/06/22 10:46 Imaging Radiology Impressions: ITS Impressions Head CT 04/06/22 12:30 IMPRESSION: Mild atrophy without any evidence for acute process. Medications Medications Current Medications Acetaminophen (Acetaminophen 325 Mg Tablet) 650 mg PO Q6H PRN PRN Reason: Headache/Pain Mild Scale (1-3) Last Admin: 04/09/22 16:35 Dose: 650 mg Al Hydroxide/Mg Hydroxide (Magnesium Hydrox/Alum Hydrox 30 Ml Oral.Susp) 30 ml PO Q6H PRN PRN Reason: Heartburn/Nausea Albuterol Sulfate (Albuterol Sulfate 90 Mcg 8 Gm Inhaler) 2 puff INHALE Q6H PRN PRN Reason: Wheezing Bupropion HCl (Bupropion Hcl Xl 300 Mg Tab.Er.24h) 300 mg PO DAILY [facility] Last Admin: 04/11/22 09:02 Dose: 300 mg Fluticasone Propionate (Fluticasone Propionate 250 Mcg Blst.W.Dev) 2 puff INHALE RBID [facility] Last Admin: 04/11/22 09:02 Dose: 2 puff Haloperidol (Haloperidol 5 Mg Tablet) 10 mg PO BEDTIME [facility] Last Admin: 04/10/22 20:17 Dose: 10 mg Hydrochlorothiazide (Hydrochlorothiazide 25 Mg Tablet) 25 mg PO BIDWM [facility]; Protocol Last Admin: 04/11/22 09:02 Dose: 25 mg Hydroxyzine HCl (Hydroxyzine Hcl 25 Mg Tablet) 25 mg PO Q6H PRN PRN Reason: Anxiety Loratadine (Loratadine 10 Mg Tablet) 10 mg PO DAILY [facility] Last Admin: 04/11/22 09:02 Dose: 10 mg Magnesium Hydroxide (Milk Of Magnesia 30 Ml Oral.Susp) 30 ml PO DAILY PRN PRN Reason: Constipation Montelukast Sodium (Montelukast Sodium 10 Mg Tablet) 10 mg PO BEDTIME [facility] Last Admin: 04/10/22 20:18 Dose: 10 mg Pharmacy Consult (Consult Rx Perform Med Rec) 1 each MISCELLANE ONCE PRN PRN Reason: Consult order Trazodone HCl (Trazodone Hcl 50 Mg Tablet) 50 mg PO BEDTIME PRN PRN Reason: Insomnia Allergies Allergies Allergy/AdvReac Type Severity Reaction Status Date / Time Penicillins [PCN] Allergy Rash Verified 04/06/22 10:23 Sulfa (Sulfonamide Allergy Swelling Verified 04/06/22 10:23 Antibiotics) Assessment & Plan Assessment & Plan (1) Schizophrenia: Status: Acute Code(s): F20.9 - Schizophrenia, unspecified Plan pt is a 71 yo female with dx of schizoaffective disorder who presents for disorganized behavior in face of being off medications. Pt said she stopped taking her medications because she does not need them -pt delusional; no insight -currently agrees to restart Haldol but only at 5mg (normally 10mg) -will get collateral 04/09 says better agrees to increase haldol back to home dose 04/10 says feeling better still; head does not hurt; still delusional, disorganized 04/11 remains disorganized and without insight; however she says she feels better and for the 1st time was willing to come out of her room and sit in the milieu. Patient has been off her medications for few weeks and it will likely take a while for Haldol to get become functional before she is ready to return to the community Plan: CV q15 Ordered EKG for QTC monitoring continue Haldol 10mg (normally 10mg) continue Wellbutrin get collateral I spent minutes with the patient and/or on the patient floor today, greater than?50% of which was spent counseling/coordinating care. Reason for contiued inpatient stay Substantial Risk for: inability to function Time Spent With Patient Time: Total time managing care of this patient today ____ minutes.
[2022-04-11] MEDS: Acetaminophen 325 MG TABLET 650 MG PO (14:09)
[2022-04-11 16:55] VITALS: BP 130/60; PULSE 73; TEMP 36.5
[2022-04-11] MEDS: Montelukast Sodium 10 MG TABLET PO (21:52)
[2022-04-11] MEDS: HaloperidoL 5 MG TABLET 10 MG PO (21:52)
[2022-04-12] MEDS: Loratadine 10 MG TABLET PO (09:01)
[2022-04-12] MEDS: buPROPion HCl XL 300 MG TAB.ER.24H PO (09:01)
[2022-04-12] MEDS: hydroCHLOROthiazide 25 MG TABLET PO ×2 (09:01→16:53)
[2022-04-12 09:03] VITALS: BP 122/68; PULSE 73; RESP 18; TEMP 36.7; O2SAT 94
[2022-04-12] MEDS: Fluticasone Propionate 250 MCG BLST.W.DEV 2 PUFF INHALE ×2 (09:20→19:56)
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
[2022-04-12] MEDS: Acetaminophen 325 MG TABLET 650 MG PO (12:50)
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
[2022-04-12 16:28] VITALS: BP 132/67; PULSE 71; RESP 18; TEMP 36.7; O2SAT 96
[2022-04-12] MEDS: HaloperidoL 5 MG TABLET 10 MG PO (19:56)
[2022-04-12] MEDS: Montelukast Sodium 10 MG TABLET PO (19:56)
[2022-04-13 08:30] VITALS: BP 126/58; PULSE 66; TEMP 36.6
[2022-04-13] MEDS: hydroCHLOROthiazide 25 MG TABLET PO ×2 (08:49→17:31)
[2022-04-13] MEDS: Loratadine 10 MG TABLET PO (08:49)
[2022-04-13] MEDS: buPROPion HCl XL 300 MG TAB.ER.24H PO (08:49)
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
[2022-04-13] MEDS: Cyclobenzaprine HCl 5 MG TABLET PO ×2 (14:34→21:35)
[2022-04-13] MEDS: Ziprasidone 20 MG CAPSULE PO ×2 (14:34→21:34)
[2022-04-13 17:59] VITALS: BP 124/62; PULSE 78; RESP 18; TEMP 36.6; O2SAT 97
[2022-04-13] MEDS: HaloperidoL 5 MG TABLET 10 MG PO (21:35)
[2022-04-13] MEDS: Montelukast Sodium 10 MG TABLET PO (21:36)
[2022-04-13] MEDS: Fluticasone Propionate 250 MCG BLST.W.DEV 2 PUFF INHALE (21:40)
--- NOTE | 2022-04-14 | ECG_ITS ---
Test Reason : qtc Blood Pressure : / mmHG Vent. Rate : 073 BPM Atrial Rate : 073 BPM P-R Int : 144 ms QRS Dur : 080 ms QT Int : 526 ms P-R-T Axes : 075 049 052 degrees QTc Int : 579 ms Normal sinus rhythm Prolonged QT Abnormal ECG When compared with ECG of 06-APR-2022 12:43, QT has lengthened Referred By: Charanjit Rogders Electronically Signed By:Alex Singh
[2022-04-14 08:48] VITALS: BP 123/57; PULSE 67; TEMP 36.8
[2022-04-14] MEDS: buPROPion HCl XL 300 MG TAB.ER.24H PO (09:00)
[2022-04-14] MEDS: Loratadine 10 MG TABLET PO (09:00)
[2022-04-14] MEDS: hydroCHLOROthiazide 25 MG TABLET PO ×2 (09:00→17:42)
[2022-04-14] MEDS: Ziprasidone 20 MG CAPSULE PO ×2 (09:00→17:41)
--- NOTE | 2022-04-14 16:27 | HO.PSYCHPN ---
Subjective Subjective Date of Service: 04/14/22 Reason For Visit: schizoaffective disorder bipolar type Interim History: Reports her head pain is mostly gone. EKG with QTc 579. Will hold Geodon, get another EKG and ask for re-eval on 04/15. Reports feeling improved. Attributes this to Geodon. Medication Compliance: Yes Side effects from medications: No Attending Groups: No Review of Systems Acute medical concerns: No Medical Review of Systems: unchanged Mental Status Exam Mental Status Exam Patient Appearance: Appropriate Patient Orientation: Person, Place, Time and Situation Level of Consciousness: Alert Patient Behavior: Appropriate, Talkative and Good Eye Contact Mood Description: Apprehensive Affect Description: Apprehensive Patient Cognition Impaired: No Ability to Follow Directions: Fair Speech Pattern: Spontaneous Speech Memory Description: Episodic Impaired Hallucinations: None Delusions: Not Present Thought Process: Distracted Thought Content: positive for [place], positive for Circumstantial and positive for Suicidal Ideation (denies) Depressive Symptoms: Increased Anxiety Judgement: Fair Diagnostics Vital Signs (24Hr): Vital Signs - 24 hr 04/13/22 17:59 04/14/22 08:48 Temperature 98 F 98.3 F Pulse Rate 78 67 Respiratory Rate 18 Blood Pressure 124/62 123/57 L Pulse Oximetry 97 Oxygen Delivery Method Room Air BMI result Body Mass Index 32.9 Labs Results: 04/06/22 10:46 04/06/22 10:46 Imaging Radiology Impressions: ITS Impressions Head CT 04/06/22 12:30 IMPRESSION: Mild atrophy without any evidence for acute process. Medications Medications Current Medications Acetaminophen (Acetaminophen 325 Mg Tablet) 650 mg PO Q6H PRN PRN Reason: Headache/Pain Mild Scale (1-3) Last Admin: 04/12/22 12:50 Dose: 650 mg Al Hydroxide/Mg Hydroxide (Magnesium Hydrox/Alum Hydrox 30 Ml Oral.Susp) 30 ml PO Q6H PRN PRN Reason: Heartburn/Nausea Albuterol Sulfate (Albuterol Sulfate 90 Mcg 8 Gm Inhaler) 2 puff INHALE Q6H PRN PRN Reason: Wheezing Bupropion HCl (Bupropion Hcl Xl 300 Mg Tab.Er.24h) 300 mg PO DAILY PIPPA Last Admin: 04/14/22 09:00 Dose: 300 mg Cyclobenzaprine HCl (Cyclobenzaprine Hcl 5 Mg Tablet) 5 mg PO TID PRN PRN Reason: neck ache Last Admin: 04/13/22 21:35 Dose: 5 mg Fluticasone Propionate (Fluticasone Propionate 250 Mcg Blst.W.Dev) 2 puff INHALE RBID [facility] Last Admin: 04/14/22 09:00 Dose: Not Given Haloperidol (Haloperidol 5 Mg Tablet) 10 mg PO BEDTIME [facility] Last Admin: 04/13/22 21:35 Dose: 10 mg Hydrochlorothiazide (Hydrochlorothiazide 25 Mg Tablet) 25 mg PO BIDWM [facility]; Protocol Last Admin: 04/14/22 09:00 Dose: 25 mg Hydroxyzine HCl (Hydroxyzine Hcl 25 Mg Tablet) 25 mg PO Q6H PRN PRN Reason: Anxiety Loratadine (Loratadine 10 Mg Tablet) 10 mg PO DAILY [facility] Last Admin: 04/14/22 09:00 Dose: 10 mg Magnesium Hydroxide (Milk Of Magnesia 30 Ml Oral.Susp) 30 ml PO DAILY PRN PRN Reason: Constipation Montelukast Sodium (Montelukast Sodium 10 Mg Tablet) 10 mg PO BEDTIME [facility] Last Admin: 04/13/22 21:36 Dose: 10 mg Pharmacy Consult (Consult Rx Perform Med Rec) 1 each MISCELLANE ONCE PRN PRN Reason: Consult order Trazodone HCl (Trazodone Hcl 50 Mg Tablet) 50 mg PO BEDTIME PRN PRN Reason: Insomnia Ziprasidone (Ziprasidone 20 Mg Capsule) 20 mg PO BIDWM [facility] Last Admin: 04/14/22 09:00 Dose: 20 mg Allergies Allergies Allergy/AdvReac Type Severity Reaction Status Date / Time Penicillins [PCN] Allergy Rash Verified 04/06/22 10:23 Sulfa (Sulfonamide Allergy Swelling Verified 04/06/22 10:23 Antibiotics) Assessment & Plan Assessment & Plan (1) Schizophrenia: Status: Acute Code(s): F20.9 - Schizophrenia, unspecified Plan pt is a 71 yo female with dx of schizoaffective disorder who presents for disorganized behavior in face of being off medications. Pt said she stopped taking her medications because she does not need them -pt delusional; no insight -currently agrees to restart Haldol but only at 5mg (normally 10mg) -will get collateral 04/09 says better agrees to increase haldol back to home dose 04/10 says feeling better still; head does not hurt; still delusional, disorganized 04/11 remains disorganized and without insight; however she says she feels better and for the 1st time was willing to come out of her room and sit in the milieu. Patient has been off her medications for few weeks and it will likely take a while for Haldol to get become functional before she is ready to return to the community 04/12 patient has improved some and allowed staff to help her bathe; she remains delusional. Patient should remain on the unit until she is much closer to baseline at which she attends to her own ADLs; otherwise high risk of rehospitalization. EKG ordered for tomorrow 04/13 remains delusional but friendlier and says she is feeling better. Agreed to restart ziprasidone which she said she stopped 2 weeks ago; she had also stopped Paxil (and BuSpar) of which abrupt discontinuation of Paxil could be causing some of patient's complaint of headache. 04/14- good effect from ziprasidone, however with QTc at 579. will hold Ziprasidone, repeat EKG on 04/15 and re-eval medication choice Plan: CV q15 Ordered EKG for QTC monitoring restarted Ziprasidone 20mg BID (pt was on 80mg) continue Haldol 10mg (normally 10mg) continue Wellbutrin ADDed Flexaril for reported neck muscle pain get collateral Patient educated on: therapeutic strategies and medical condition Informed Consent: further education needed Reason for contiued inpatient stay Substantial Risk for: med/psych decompensation Time Spent With Patient Time: Total time managing care of this patient today __25__ minutes.
[2022-04-14 17:20] VITALS: BP 127/61; PULSE 73; TEMP 36.2
[2022-04-14] MEDS: Cyclobenzaprine HCl 5 MG TABLET PO (20:46)
[2022-04-14] MEDS: Montelukast Sodium 10 MG TABLET PO (20:46)
[2022-04-14] MEDS: HaloperidoL 5 MG TABLET 10 MG PO (20:46)
[2022-04-15 07:45] VITALS: BP 115/76; PULSE 76; RESP 16; TEMP 37; O2SAT 98
--- NOTE | 2022-04-15 09:00 | ECG_ITS ---
Test Reason : pain Blood Pressure : / mmHG Vent. Rate : 074 BPM Atrial Rate : 074 BPM P-R Int : 140 ms QRS Dur : 082 ms QT Int : 436 ms P-R-T Axes : 053 035 042 degrees QTc Int : 483 ms Normal sinus rhythm Prolonged QTc abnormal ECG When compared with ECG of 14-APR-2022 10:00, QT has shortened Referred By: Loli Van Electronically Signed By:Alex Singh
[2022-04-15] MEDS: hydroCHLOROthiazide 25 MG TABLET PO ×2 (09:07→18:15)
[2022-04-15] MEDS: buPROPion HCl XL 300 MG TAB.ER.24H PO (09:07)
[2022-04-15] MEDS: Fluticasone Propionate 250 MCG BLST.W.DEV 2 PUFF INHALE ×2 (09:08→20:37)
[2022-04-15] MEDS: Loratadine 10 MG TABLET PO (09:08)
--- NOTE | 2022-04-15 11:05 | HO.PSYCHPN ---
Subjective Subjective Date of Service: 04/15/22 Reason For Visit: schizoaffective disorder bipolar type Subjective Notes: Conditional Voluntary Healthcare Proxy: No Guardianship: No Medical Problems Affecting Mental Status: No Interim History: Patient was seen and discussed in rounds today. Records and plans were reviewed. She continues to complain of some anxiety. She continues to be guarded. No SI and is safe on the unit. She is not attending groups. Eating and sleeping adequately. She is having an EKG done again today because of prolonged QTC. Review of Systems Review of Systems Constitutional : No Fever, No Chills ENT/Mouth : No Ear Pain, No Nasal Congestion, No sore throat Eyes: No Eye Pain, No Swelling, No Redness Cardiovascular : No Chest Pain, No SOB Respiratory : No Cough, No Sputum, No Dyspnea Gastrointestinal : No Nausea, No Vomiting, No Diarrhea, No Hematochezia, No Melena Genitourinary : No Dysuria, No Urinary Frequency, No Hematuria Musculoskeletal : No Myalgias Skin : No Skin Lesions, No rash Neuro : No Weakness, No Numbness, No Paresthesias, No Dizziness, No Headache Psych : positive Anxiety, positive Depression, no SI/HI, positive hallucinations Heme/Lymph: No Lymphadenopathy Endocrine : No Polyuria, No Polydipsia Yes all other systems are reviewed and are negative Mental Status Exam Mental Status Exam Patient Appearance: Appropriate Patient Orientation: Person, Place, Time and Situation Level of Consciousness: Alert Patient Behavior: Appropriate, Talkative and Good Eye Contact Mood Description: Apprehensive Affect Description: Apprehensive Patient Cognition Impaired: No Ability to Follow Directions: Fair Speech Pattern: Spontaneous Speech Memory Description: Episodic Impaired Hallucinations: None Delusions: Not Present Thought Process: Distracted Thought Content: positive for [place], positive for Circumstantial and positive for Suicidal Ideation (denies) Depressive Symptoms: Increased Anxiety Judgement: Fair Diagnostics Vital Signs (24Hr): Vital Signs - 24 hr 04/14/22 17:20 04/15/22 07:45 Temperature 97.2 F 98.6 F Pulse Rate 73 76 Respiratory Rate 16 Blood Pressure 127/61 115/76 Pulse Oximetry 98 Oxygen Delivery Method Room Air BMI result Body Mass Index 32.9 Labs Results: 04/06/22 10:46 04/06/22 10:46 Imaging Radiology Impressions: ITS Impressions Head CT 04/06/22 12:30 IMPRESSION: Mild atrophy without any evidence for acute process. Medications Medications Current Medications Acetaminophen (Acetaminophen 325 Mg Tablet) 650 mg PO Q6H PRN PRN Reason: Headache/Pain Mild Scale (1-3) Last Admin: 04/12/22 12:50 Dose: 650 mg Al Hydroxide/Mg Hydroxide (Magnesium Hydrox/Alum Hydrox 30 Ml Oral.Susp) 30 ml PO Q6H PRN PRN Reason: Heartburn/Nausea Albuterol Sulfate (Albuterol Sulfate 90 Mcg 8 Gm Inhaler) 2 puff INHALE Q6H PRN PRN Reason: Wheezing Bupropion HCl (Bupropion Hcl Xl 300 Mg Tab.Er.24h) 300 mg PO DAILY [facility] Last Admin: 04/15/22 09:07 Dose: 300 mg Cyclobenzaprine HCl (Cyclobenzaprine Hcl 5 Mg Tablet) 5 mg PO TID PRN PRN Reason: neck ache Last Admin: 04/14/22 20:46 Dose: 5 mg Fluticasone Propionate (Fluticasone Propionate 250 Mcg Blst.W.Dev) 2 puff INHALE RBID [facility] Last Admin: 04/15/22 09:08 Dose: 2 puff Haloperidol (Haloperidol 5 Mg Tablet) 10 mg PO BEDTIME [facility] Last Admin: 04/14/22 20:46 Dose: 10 mg Hydrochlorothiazide (Hydrochlorothiazide 25 Mg Tablet) 25 mg PO BIDWM [facility]; Protocol Last Admin: 04/15/22 09:07 Dose: 25 mg Hydroxyzine HCl (Hydroxyzine Hcl 25 Mg Tablet) 25 mg PO Q6H PRN PRN Reason: Anxiety Loratadine (Loratadine 10 Mg Tablet) 10 mg PO DAILY [facility] Last Admin: 04/15/22 09:08 Dose: 10 mg Magnesium Hydroxide (Milk Of Magnesia 30 Ml Oral.Susp) 30 ml PO DAILY PRN PRN Reason: Constipation Montelukast Sodium (Montelukast Sodium 10 Mg Tablet) 10 mg PO BEDTIME [facility] Last Admin: 04/14/22 20:46 Dose: 10 mg Pharmacy Consult (Consult Rx Perform Med Rec) 1 each MISCELLANE ONCE PRN PRN Reason: Consult order Trazodone HCl (Trazodone Hcl 50 Mg Tablet) 50 mg PO BEDTIME PRN PRN Reason: Insomnia Allergies Allergies Allergy/AdvReac Type Severity Reaction Status Date / Time Penicillins [PCN] Allergy Rash Verified 04/06/22 10:23 Sulfa (Sulfonamide Allergy Swelling Verified 04/06/22 10:23 Antibiotics) Assessment & Plan Assessment & Plan (1) Schizophrenia: Status: Acute Code(s): F20.9 - Schizophrenia, unspecified Plan pt is a 71 yo female with dx of schizoaffective disorder who presents for disorganized behavior in face of being off medications. Pt said she stopped taking her medications because she does not need them -pt delusional; no insight -currently agrees to restart Haldol but only at 5mg (normally 10mg) -will get collateral 04/09 says better agrees to increase haldol back to home dose 04/10 says feeling better still; head does not hurt; still delusional, disorganized 04/11 remains disorganized and without insight; however she says she feels better and for the 1st time was willing to come out of her room and sit in the milieu. Patient has been off her medications for few weeks and it will likely take a while for Haldol to get become functional before she is ready to return to the community 04/12 patient has improved some and allowed staff to help her bathe; she remains delusional. Patient should remain on the unit until she is much closer to baseline at which she attends to her own ADLs; otherwise high risk of rehospitalization. EKG ordered for tomorrow 04/13 remains delusional but friendlier and says she is feeling better. Agreed to restart ziprasidone which she said she stopped 2 weeks ago; she had also stopped Paxil (and BuSpar) of which abrupt discontinuation of Paxil could be causing some of patient's complaint of headache. 04/14- good effect from ziprasidone, however with QTc at 579. will hold Ziprasidone, repeat EKG on 04/15 and re-eval medication choice Plan: CV q15 Ordered EKG for QTC monitoring restarted Ziprasidone 20mg BID (pt was on 80mg) continue Haldol 10mg (normally 10mg) continue Wellbutrin ADDed Flexaril for reported neck muscle pain get collateral 04/15: Continue current regimen and plans Reason for contiued inpatient stay Substantial Risk for: med/psych decompensation Time Spent With Patient Time: Total time managing care of this patient today ____ minutes.
[2022-04-15] MEDS: Cyclobenzaprine HCl 5 MG TABLET PO (12:00)
[2022-04-15 18:10] VITALS: BP 129/72; PULSE 101; RESP 16; TEMP 36.6
[2022-04-15] MEDS: HaloperidoL 5 MG TABLET 10 MG PO (20:38)
[2022-04-15] MEDS: Montelukast Sodium 10 MG TABLET PO (20:38)
[2022-04-15] MEDS: Acetaminophen 325 MG TABLET 650 MG PO (20:41)
[2022-04-16 08:00] VITALS: BP 120/58; PULSE 72; RESP 18; TEMP 36.4; O2SAT 94
[2022-04-16] MEDS: buPROPion HCl XL 300 MG TAB.ER.24H PO (09:13)
[2022-04-16] MEDS: Fluticasone Propionate 250 MCG BLST.W.DEV 2 PUFF INHALE (09:13)
[2022-04-16] MEDS: Loratadine 10 MG TABLET PO (09:13)
[2022-04-16] MEDS: hydroCHLOROthiazide 25 MG TABLET PO (09:13)
--- NOTE | 2022-04-16 10:29 | HO.PSYCHPN ---
Subjective Subjective Date of Service: 04/16/22 Reason For Visit: schizoaffective disorder bipolar type Subjective Notes: Conditional Voluntary Healthcare Proxy: No Guardianship: No Medical Problems Affecting Mental Status: No Interim History: Patient was seen and discussed in rounds today. Records and plans were reviewed. She is doing better and has been brighter in her affect but continues to feel depressed and is mostly isolative. She is medication compliant. Her EKG showed marked improvement in her QTC. The emergency cardiology consult was canceled, to be revaluated on 04/18. Is a press and own continues to be not given for now. No changes were made today Review of Systems Review of Systems Yes all other systems are reviewed and are negative Diagnostics Vital Signs (24Hr): Vital Signs - 24 hr 04/15/22 18:10 04/16/22 08:00 Temperature 98 F 97.6 F Pulse Rate 101 H 72 Respiratory Rate 16 18 Blood Pressure 129/72 120/58 L Pulse Oximetry 94 Oxygen Delivery Method Room Air BMI result Body Mass Index 32.9 Labs Results: 04/06/22 10:46 04/06/22 10:46 Imaging Radiology Impressions: ITS Impressions Head CT 04/06/22 12:30 IMPRESSION: Mild atrophy without any evidence for acute process. Medications Medications Current Medications Acetaminophen (Acetaminophen 325 Mg Tablet) 650 mg PO Q6H PRN PRN Reason: Headache/Pain Mild Scale (1-3) Last Admin: 04/15/22 20:41 Dose: 650 mg Al Hydroxide/Mg Hydroxide (Magnesium Hydrox/Alum Hydrox 30 Ml Oral.Susp) 30 ml PO Q6H PRN PRN Reason: Heartburn/Nausea Albuterol Sulfate (Albuterol Sulfate 90 Mcg 8 Gm Inhaler) 2 puff INHALE Q6H PRN PRN Reason: Wheezing Bupropion HCl (Bupropion Hcl Xl 300 Mg Tab.Er.24h) 300 mg PO DAILY [facility] Last Admin: 04/16/22 09:13 Dose: 300 mg Cyclobenzaprine HCl (Cyclobenzaprine Hcl 5 Mg Tablet) 5 mg PO TID PRN PRN Reason: neck ache Last Admin: 04/15/22 12:00 Dose: 5 mg Fluticasone Propionate (Fluticasone Propionate 250 Mcg Blst.W.Dev) 2 puff INHALE RBID [facility] Last Admin: 04/16/22 09:13 Dose: 2 puff Haloperidol (Haloperidol 5 Mg Tablet) 10 mg PO BEDTIME [facility] Last Admin: 04/15/22 20:38 Dose: 10 mg Hydrochlorothiazide (Hydrochlorothiazide 25 Mg Tablet) 25 mg PO BIDWM [facility]; Protocol Last Admin: 04/16/22 09:13 Dose: 25 mg Hydroxyzine HCl (Hydroxyzine Hcl 25 Mg Tablet) 25 mg PO Q6H PRN PRN Reason: Anxiety Loratadine (Loratadine 10 Mg Tablet) 10 mg PO DAILY [facility] Last Admin: 04/16/22 09:13 Dose: 10 mg Magnesium Hydroxide (Milk Of Magnesia 30 Ml Oral.Susp) 30 ml PO DAILY PRN PRN Reason: Constipation Montelukast Sodium (Montelukast Sodium 10 Mg Tablet) 10 mg PO BEDTIME [facility] Last Admin: 04/15/22 20:38 Dose: 10 mg Pharmacy Consult (Consult Rx Perform Med Rec) 1 each MISCELLANE ONCE PRN PRN Reason: Consult order Trazodone HCl (Trazodone Hcl 50 Mg Tablet) 50 mg PO BEDTIME PRN PRN Reason: Insomnia Allergies Allergies Allergy/AdvReac Type Severity Reaction Status Date / Time Penicillins [PCN] Allergy Rash Verified 04/06/22 10:23 Sulfa (Sulfonamide Allergy Swelling Verified 04/06/22 10:23 Antibiotics) Assessment & Plan Assessment & Plan (1) Schizophrenia: Status: Acute Code(s): F20.9 - Schizophrenia, unspecified Plan pt is a 71 yo female with dx of schizoaffective disorder who presents for disorganized behavior in face of being off medications. Pt said she stopped taking her medications because she does not need them -pt delusional; no insight -currently agrees to restart Haldol but only at 5mg (normally 10mg) -will get collateral 04/09 says better agrees to increase haldol back to home dose 04/10 says feeling better still; head does not hurt; still delusional, disorganized 04/11 remains disorganized and without insight; however she says she feels better and for the 1st time was willing to come out of her room and sit in the milieu. Patient has been off her medications for few weeks and it will likely take a while for Haldol to get become functional before she is ready to return to the community 04/12 patient has improved some and allowed staff to help her bathe; she remains delusional. Patient should remain on the unit until she is much closer to baseline at which she attends to her own ADLs; otherwise high risk of rehospitalization. EKG ordered for tomorrow 04/13 remains delusional but friendlier and says she is feeling better. Agreed to restart ziprasidone which she said she stopped 2 weeks ago; she had also stopped Paxil (and BuSpar) of which abrupt discontinuation of Paxil could be causing some of patient's complaint of headache. 04/14- good effect from ziprasidone, however with QTc at 579. will hold Ziprasidone, repeat EKG on 04/15 and re-eval medication choice Plan: CV q15 Ordered EKG for QTC monitoring restarted Ziprasidone 20mg BID (pt was on 80mg) continue Haldol 10mg (normally 10mg) continue Wellbutrin ADDed Flexaril for reported neck muscle pain get collateral 04/15: Continue current regimen and plans 04/16: Continue current plans and regimen Reason for contiued inpatient stay Substantial Risk for: med/psych decompensation Time Spent With Patient Time: Total time managing care of this patient today ____ minutes.
[2022-04-16] MEDS: Magnesium Hydrox/Alum Hydrox 30 ML ORAL.SUSP PO (14:25)
[2022-04-17 08:10] VITALS: BP 117/57; PULSE 67; RESP 15; TEMP 36.1; O2SAT 95
[2022-04-17] MEDS: Loratadine 10 MG TABLET PO (08:11)
[2022-04-17] MEDS: hydroCHLOROthiazide 25 MG TABLET PO (08:11)
[2022-04-17] MEDS: Fluticasone Propionate 250 MCG BLST.W.DEV 2 PUFF INHALE ×2 (08:11→19:52)
[2022-04-17] MEDS: buPROPion HCl XL 300 MG TAB.ER.24H PO (08:11)
--- NOTE | 2022-04-17 09:46 | HO.PSYCHPN ---
Subjective Subjective Date of Service: 04/17/22 Reason For Visit: schizoaffective disorder bipolar type Subjective Notes: Conditional Voluntary Healthcare Proxy: No Guardianship: No Medical Problems Affecting Mental Status: No Interim History: Patient was seen and discussed in rounds today. Records and plans were reviewed. She has been stable and is doing fairly well. She states that her headaches have gone. She is also not having any abdominal pain and discomfort. She continues to be isolative but generally is feeling better. She has been compliant with medications. She denies any side effects. The emergency cardiology consult was canceled for the weekend to be re-evaluated tomorrow with considerations of putting it back in but her QTC had improved over the weekend Medication Compliance: Yes Side effects from medications: No Attending Groups: Yes Review of Systems Review of Systems Yes all other systems are reviewed and are negative Mental Status Exam Mental Status Exam Narrative: In today's visit she is alert, oriented and pleasant. Normal speech. Good eye contact. Affect is appropriate and subdued but has been improving. No signs of psychosis. No SI. Cognitively intact. Judgment is intact Diagnostics Vital Signs (24Hr): Vital Signs - 24 hr 04/17/22 08:10 Temperature 97.0 F Pulse Rate 67 Respiratory Rate 15 Blood Pressure 117/57 L Pulse Oximetry 95 Oxygen Delivery Method Room Air BMI result Body Mass Index 32.9 Labs Results: 04/06/22 10:46 04/06/22 10:46 Imaging Radiology Impressions: ITS Impressions Head CT 04/06/22 12:30 IMPRESSION: Mild atrophy without any evidence for acute process. Medications Medications Current Medications Acetaminophen (Acetaminophen 325 Mg Tablet) 650 mg PO Q6H PRN PRN Reason: Headache/Pain Mild Scale (1-3) Last Admin: 04/15/22 20:41 Dose: 650 mg Al Hydroxide/Mg Hydroxide (Magnesium Hydrox/Alum Hydrox 30 Ml Oral.Susp) 30 ml PO Q6H PRN PRN Reason: Heartburn/Nausea Last Admin: 04/16/22 14:25 Dose: 30 ml Albuterol Sulfate (Albuterol Sulfate 90 Mcg 8 Gm Inhaler) 2 puff INHALE Q6H PRN PRN Reason: Wheezing Bupropion HCl (Bupropion Hcl Xl 300 Mg Tab.Er.24h) 300 mg PO DAILY [facility] Last Admin: 04/17/22 08:11 Dose: 300 mg Cyclobenzaprine HCl (Cyclobenzaprine Hcl 5 Mg Tablet) 5 mg PO TID PRN PRN Reason: neck ache Last Admin: 04/15/22 12:00 Dose: 5 mg Fluticasone Propionate (Fluticasone Propionate 250 Mcg Blst.W.Dev) 2 puff INHALE RBID [facility] Last Admin: 04/17/22 08:11 Dose: 2 puff Haloperidol (Haloperidol 5 Mg Tablet) 10 mg PO BEDTIME [facility] Last Admin: 04/17/22 08:08 Dose: Not Given Hydrochlorothiazide (Hydrochlorothiazide 25 Mg Tablet) 25 mg PO BIDWM [facility]; Protocol Last Admin: 04/17/22 08:11 Dose: 25 mg Hydroxyzine HCl (Hydroxyzine Hcl 25 Mg Tablet) 25 mg PO Q6H PRN PRN Reason: Anxiety Loratadine (Loratadine 10 Mg Tablet) 10 mg PO DAILY [facility] Last Admin: 04/17/22 08:11 Dose: 10 mg Magnesium Hydroxide (Milk Of Magnesia 30 Ml Oral.Susp) 30 ml PO DAILY PRN PRN Reason: Constipation Montelukast Sodium (Montelukast Sodium 10 Mg Tablet) 10 mg PO BEDTIME [facility] Last Admin: 04/17/22 08:08 Dose: Not Given Pharmacy Consult (Consult Rx Perform Med Rec) 1 each MISCELLANE ONCE PRN PRN Reason: Consult order Trazodone HCl (Trazodone Hcl 50 Mg Tablet) 50 mg PO BEDTIME PRN PRN Reason: Insomnia Allergies Allergies Allergy/AdvReac Type Severity Reaction Status Date / Time Penicillins [PCN] Allergy Rash Verified 04/06/22 10:23 Sulfa (Sulfonamide Allergy Swelling Verified 04/06/22 10:23 Antibiotics) Assessment & Plan Assessment & Plan (1) Schizophrenia: Status: Acute Code(s): F20.9 - Schizophrenia, unspecified Plan pt is a 71 yo female with dx of schizoaffective disorder who presents for disorganized behavior in face of being off medications. Pt said she stopped taking her medications because she does not need them -pt delusional; no insight -currently agrees to restart Haldol but only at 5mg (normally 10mg) -will get collateral 04/09 says better agrees to increase haldol back to home dose 04/10 says feeling better still; head does not hurt; still delusional, disorganized 04/11 remains disorganized and without insight; however she says she feels better and for the 1st time was willing to come out of her room and sit in the milieu. Patient has been off her medications for few weeks and it will likely take a while for Haldol to get become functional before she is ready to return to the community 04/12 patient has improved some and allowed staff to help her bathe; she remains delusional. Patient should remain on the unit until she is much closer to baseline at which she attends to her own ADLs; otherwise high risk of rehospitalization. EKG ordered for tomorrow 04/13 remains delusional but friendlier and says she is feeling better. Agreed to restart ziprasidone which she said she stopped 2 weeks ago; she had also stopped Paxil (and BuSpar) of which abrupt discontinuation of Paxil could be causing some of patient's complaint of headache. 04/14- good effect from ziprasidone, however with QTc at 579. will hold Ziprasidone, repeat EKG on 04/15 and re-eval medication choice Plan: CV q15 Ordered EKG for QTC monitoring restarted Ziprasidone 20mg BID (pt was on 80mg) continue Haldol 10mg (normally 10mg) continue Wellbutrin ADDed Flexaril for reported neck muscle pain get collateral 04/15: Continue current regimen and plans 04/16: Continue current plans and regimen 04/17: Continue current regimen and plans Reason for contiued inpatient stay Substantial Risk for: med/psych decompensation Time Spent With Patient Time: Total time managing care of this patient today ____ minutes.
[2022-04-17 16:09] VITALS: BP 105/53; PULSE 80; RESP 16; TEMP 36.7; O2SAT 96
[2022-04-17] MEDS: Montelukast Sodium 10 MG TABLET PO (19:52)
[2022-04-17] MEDS: Acetaminophen 325 MG TABLET 650 MG PO (19:52)
[2022-04-17] MEDS: HaloperidoL 5 MG TABLET 10 MG PO (19:52)
[2022-04-18 08:39] VITALS: BP 110/57; PULSE 72; RESP 18; TEMP 35.9; O2SAT 96
[2022-04-18] MEDS: Loratadine 10 MG TABLET PO (08:56)
[2022-04-18] MEDS: buPROPion HCl XL 300 MG TAB.ER.24H PO (08:56)
[2022-04-18] MEDS: hydroCHLOROthiazide 25 MG TABLET PO (08:56)
[2022-04-18] MEDS: Fluticasone Propionate 250 MCG BLST.W.DEV 2 PUFF INHALE ×2 (08:56→21:01)
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
[2022-04-18 17:59] VITALS: BP 97/50; PULSE 75; RESP 18; TEMP 36.6; O2SAT 96
[2022-04-18] MEDS: HaloperidoL 5 MG TABLET 10 MG PO (21:01)
[2022-04-18] MEDS: Montelukast Sodium 10 MG TABLET PO (21:01)
[2022-04-19 06:00] VITALS: BP 127/60; PULSE 75; RESP 16
[2022-04-19] MEDS: hydroCHLOROthiazide 25 MG TABLET PO ×2 (08:19→16:57)
[2022-04-19] MEDS: buPROPion HCl XL 300 MG TAB.ER.24H PO (08:19)
[2022-04-19] MEDS: Loratadine 10 MG TABLET PO (08:19)
[2022-04-19] MEDS: Fluticasone Propionate 250 MCG BLST.W.DEV 2 PUFF INHALE (08:19)
[2022-04-19 13:18] LABS: COVID-19 Test Negative (Negative); IDNOW Serial# 55D5AD1C
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
[2022-04-19 17:41] VITALS: BP 138/62; PULSE 83; RESP 18; TEMP 36.1; O2SAT 97
[2022-04-19] MEDS: HaloperidoL 5 MG TABLET 10 MG PO (21:01)
[2022-04-19] MEDS: Montelukast Sodium 10 MG TABLET PO (21:01)
[2022-04-20 06:00] VITALS: BP 105/60; PULSE 70; RESP 18; TEMP 36.7; O2SAT 96
[2022-04-20 07:00] VITALS: BMI 34.4
[2022-04-20] MEDS: buPROPion HCl XL 300 MG TAB.ER.24H PO (07:43)
[2022-04-20] MEDS: Loratadine 10 MG TABLET PO (07:43)
[2022-04-20] MEDS: hydroCHLOROthiazide 25 MG TABLET PO ×2 (07:43→16:18)
--- NOTE | 2022-04-20 10:15 | P.PNPSI_ITS ---
Subjective Subjective Date of Service: 04/20/22 Reason For Visit: schizoaffective disorder bipolar type Interim History: Patient says she is ?a lot better.? ?Still has delusional thoughts however patient's out reach person met with her today and help clarify that patient is at her baseline appropriate to return home.? Patient agrees with this plan Mental Status Exam Mental Status Exam Narrative: Pt is alert and oriented; behavior is cooperative, friendly, calm; patient is not in distress; dressed in hospital gown with improved hygiene, but unkempt hair; mood is described as a lot better and affect congruent; eye contact appropriate; Speech is no longer latent and normal rate, volume and prosody and not pressured; no psychomotor retardation present; thought process is goal dire cted; Thought content is on delusional idea; denies any SI/HI. denies AVH. Patients insight and judgment are impaired but improved and at baseline. Diagnostics Vital Signs (24Hr): Vital Signs - 24 hr 04/19/22 17:41 04/20/22 06:00 Temperature 97 F 98.0 F Pulse Rate 83 70 Respiratory Rate 18 18 Blood Pressure 138/62 105/60 Pulse Oximetry 97 96 Oxygen Delivery Method Room Air Room Air BMI result Body Mass Index 32.9 Labs Results: 04/06/22 10:46 04/06/22 10:46 Labs: Laboratory Results - last 48 hr 04/19/22 12:46 COVID-19 ([facility]) Negative COVID-19 Clin Com See Note Imaging Radiology Impressions: ITS Impressions Head CT 04/06/22 12:30 IMPRESSION: Mild atrophy without any evidence for acute process. Medications Medications Current Medications Acetaminophen (Acetaminophen 325 Mg Tablet) 650 mg PO Q6H PRN PRN Reason: Headache/Pain Mild Scale (1-3) Last Admin: 04/17/22 19:52 Dose: 650 mg Al Hydroxide/Mg Hydroxide (Magnesium Hydrox/Alum Hydrox 30 Ml Oral.Susp) 30 ml PO Q6H PRN PRN Reason: Heartburn/Nausea Last Admin: 04/16/22 14:25 Dose: 30 ml Albuterol Sulfate (Albuterol Sulfate 90 Mcg 8 Gm Inhaler) 2 puff INHALE Q6H PRN PRN Reason: Wheezing Bupropion HCl (Bupropion Hcl Xl 300 Mg Tab.Er.24h) 300 mg PO DAILY PIPPA Last Admin: 04/20/22 07:43 Dose: 300 mg Cyclobenzaprine HCl (Cyclobenzaprine Hcl 5 Mg Tablet) 5 mg PO TID PRN PRN Reason: neck ache Last Admin: 04/15/22 12:00 Dose: 5 mg Fluticasone Propionate (Fluticasone Propionate 250 Mcg Blst.W.Dev) 2 puff INHALE RBID [facility] Last Admin: 04/20/22 07:43 Dose: Not Given Haloperidol (Haloperidol 5 Mg Tablet) 10 mg PO BEDTIME [facility] Last Admin: 04/19/22 21:01 Dose: 10 mg Hydrochlorothiazide (Hydrochlorothiazide 25 Mg Tablet) 25 mg PO BIDWM [facility]; Protocol Last Admin: 04/20/22 07:43 Dose: 25 mg Hydroxyzine HCl (Hydroxyzine Hcl 25 Mg Tablet) 25 mg PO Q6H PRN PRN Reason: Anxiety Loratadine (Loratadine 10 Mg Tablet) 10 mg PO DAILY [facility] Last Admin: 04/20/22 07:43 Dose: 10 mg Magnesium Hydroxide (Milk Of Magnesia 30 Ml Oral.Susp) 30 ml PO DAILY PRN PRN Reason: Constipation Montelukast Sodium (Montelukast Sodium 10 Mg Tablet) 10 mg PO BEDTIME [facility] Last Admin: 04/19/22 21:01 Dose: 10 mg Pharmacy Consult (Consult Rx Perform Med Rec) 1 each MISCELLANE ONCE PRN PRN Reason: Consult order Trazodone HCl (Trazodone Hcl 50 Mg Tablet) 50 mg PO BEDTIME PRN PRN Reason: Insomnia Allergies Allergies Allergy/AdvReac Type Severity Reaction Status Date / Time Penicillins [PCN] Allergy Rash Verified 04/06/22 10:23 Sulfa (Sulfonamide Allergy Swelling Verified 04/06/22 10:23 Antibiotics) Assessment & Plan Assessment & Plan (1) Schizophrenia: Status: Acute Code(s): F20.9 - Schizophrenia, unspecified Plan pt is a 71 yo female with dx of schizoaffective disorder who presents for disorganized behavior in face of being off medications. Pt said she stopped taking her medications because she does not need them -pt delusional; no insight -currently agrees to restart Haldol but only at 5mg (normally 10mg) -will get collateral 04/09 says better agrees to increase haldol back to home dose 04/10 says feeling better still; head does not hurt; still delusional, disorganized 04/11 remains disorganized and without insight; however she says she feels better and for the 1st time was willing to come out of her room and sit in the milieu. Patient has been off her medications for few weeks and it will likely take a while for Haldol to get become functional before she is ready to return to the community 04/12 patient has improved some and allowed staff to help her bathe; she remains delusional. Patient should remain on the unit until she is much closer to baseline at which she attends to her own ADLs; otherwise high risk of rehospitalization. EKG ordered for tomorrow 04/13 remains delusional but friendlier and says she is feeling better. Agreed to restart ziprasidone which she said she stopped 2 weeks ago; she had also stopped Paxil (and BuSpar) of which abrupt discontinuation of Paxil could be causing some of patient's complaint of headache. 04/14- good effect from ziprasidone, however with QTc at 579. will hold Ziprasidone, repeat EKG on 04/15 and re-eval medication choice 04/18 patient remains approachable but is still with delusion. [employer] does not know what her baseline is. Outpatient worker is coming in to help evaluate. Patient is normally on ziprasidone as well however this was held due to a prolonged QTC. After get input from outpatient worker will evaluate medication regimen 04/19 no change; continue current regimen 04/20 outreach team interviewed with patient and concludes that she is back to her baseline and appropriate to return home ?Patient says she will continue taking her medication.? She returns to a supportive environment with established community support in place. ?Patient is not in imminent risk for harm to self or others and appropriate for discharge. Plan: CV q15 repeat EKG 04/15 ?? QTc Int : 483 ms (once Ziprasidone dc'd) Discontinued Ziprasidone due to prolonged QTc at 579 on 04/14 continue Haldol 10mg (normally 10mg) continue Wellbutrin ADDed Flexaril for reported neck muscle pain get collateral Patient educated on: diagnosis Informed Consent: does not understand Reason for contiued inpatient stay Substantial Risk for: stable for discharge Time Spent With Patient Time: Total time managing care of this patient today ____ minutes.
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
[2022-04-20 17:03] VITALS: BP 110/56; PULSE 73; RESP 16; TEMP 36.4; O2SAT 95
[2022-04-20] MEDS: HaloperidoL 5 MG TABLET 10 MG PO (21:05)
[2022-04-20] MEDS: Montelukast Sodium 10 MG TABLET PO (21:06)
[2022-04-21 06:00] VITALS: BP 117/56; PULSE 66; RESP 15; TEMP 36.3; O2SAT 96
[2022-04-21] MEDS: Cyclobenzaprine HCl 5 MG TABLET PO (06:21)
[2022-04-21] MEDS: Acetaminophen 325 MG TABLET 650 MG PO (06:21)
[2022-04-21] MEDS: Loratadine 10 MG TABLET PO (08:06)
[2022-04-21] MEDS: buPROPion HCl XL 300 MG TAB.ER.24H PO (08:06)
[2022-04-21] MEDS: hydroCHLOROthiazide 25 MG TABLET PO (08:22)
== END 2022-04-21 11:21 | disposition home or self-care (01) | DRG 885 ==
LOC: HO.ED 18:44 → HO.PM5 04-07 14:46
PROVIDERS: Clinical Nurse Specialist Psychiatric/Mental Health, Adult; Nurse Practitioner Family; Admitting Provider Psychiatry & Neurology Psychiatry; Emergency Provider Student in an Organized Health Care Education/Training Program; PCP Internal Medicine; Visit Provider Psychiatry & Neurology Psychiatry
DX: F20.0 Paranoid schizophrenia (principal); F17.210 Nicotine dependence, cigarettes, uncomplicated; Z23 Encounter for immunization; Z71.6 Tobacco abuse counseling; Z20.822 Contact with and (suspected) exposure to COVID-19; Z91.14 Patient's other noncompliance with medication regimen; Z88.0 Allergy status to penicillin; Z88.2 Allergy status to sulfonamides; Z79.51 Long term (current) use of inhaled steroids; Z79.899 Other long term (current) drug therapy
CPT/HCPCS: 0241U; 36415; 70450; 80053; 80061; 80307; 81001; 82077; 82607; 82746; 83036; 83735; 84439; 84443; 84484; 85025; 87635; 90686; 93005; 99285